=== PATIENT | female | born 2000 | race Caucasian/White ===

== ENCOUNTER 2019-01-01 19:43 | Emergency (ER) | payer OTHER ==
[~2019-01-01] VITALS: Ht 165.1 cm; Wt 48.1 kg
[2019-01-01 20:06] VITALS: Ht 165.1 cm; Wt 48.1 kg
[2019-01-01 23:53] VITALS: BP 129/79
== END 2019-01-01 23:54 | disposition home or self-care (01) ==
LOC: ED 19:43
DX: S02.32XA Fracture of orbital floor, left side, initial encounter for closed fracture (principal); S02.31XA Fracture of orbital floor, right side, initial encounter for closed fracture; S02.2XXA Fracture of nasal bones, initial encounter for closed fracture; Y04.0XXA Assault by unarmed brawl or fight, initial encounter; Y93.89 Activity, other specified; Y92.89 Other specified places as the place of occurrence of the external cause; Y99.8 Other external cause status